=== PATIENT | male | born 1935 | race African-American/Black ===

== ENCOUNTER → 2016-07-27 | Outpatient (CLI) | payer BC ==
--- NOTE | ~2016-07-27 | CT57 ---
[facility]. [facility] A Service of [facility] RADIOLOGY TEXT RESULTS PATIENT: ASHLY MCMULLEN LOCATION: [facility] : 33 UNIT #: [id number] AGE: [address]: Joel Larios MD SEX: M ORDER DR: [id number] [address] [address] [id number] O MR#: [id number] Acc #: [id number] NAME: ASHLY MCMULLEN : 1935 SEX: M STUDY DATE/TIME: 07/27/2016 15:31 UNIT: [facility] ROOM: STUDY DESCRIPTION: CT Chest Wo Cont Attending Physician: Joel Larios M.D. Referring Physician: Joel Larios M.D. Ordering Physician: Bridgette Taipa A.P.R.N. Primary Care Physician: Giovany Wright M.D. MEDICAL IMAGING REPORT This report is preliminary unless electronic signature is present. EXAM CT chest without contrast. DATE 07/27/2016 HISTORY 80-year-old male with dyspnea. Patient states symptoms for 2 years. Emphysema. Patient states history of malignancy, but type of malignancy not designated on the history sheet. Patient states history of radiation therapy in 2004. COMPARISON CT chest without contrast, 12/26/2012. PROCEDURE 5 mm noncontrast axial images through the chest. Sagittal and coronal reformatted images were obtained. This CT exam was performed with one or more of the following radiation dose reduction techniques: automatic exposure control, adjustment of mA and/or kV according to patient size, and iterative reconstruction. FINDINGS Airspace disease is demonstrated posteriorly within the right upper lobe, a new finding since the 2012 examination. Severe emphysematous changes are present. There is a noncalcified nodule within the central right upper lobe measuring 6 mm (series 5 image 26). There is some linear band-like atelectasis or scarring within the left upper lobe which is new. There is some scarring within the superior left STS. [facility] A Service of [facility] RADIOLOGY TEXT RESULTS PATIENT: ASHLY MCMULLEN LOCATION: [facility] : 33 UNIT #: [id number] AGE: [address]: Joel Larios MD SEX: M ORDER DR: lower lobe which is unchanged. Biapical fibrotic changes are present. No pericardial effusion. No pleural effusion. No pneumothorax. Dense coronary artery calcifications. 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 No pathologic adenopathy is seen. Benign calcified lymph nodes are seen within the mediastinum. Imaged thyroid gland appears unremarkable. Gynecomastia changes are present bilaterally. 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 Incompletely imaged left renal cysts, located [id number], measuring 2.7 and 2.8 cm, respectively. Scattered, tiny, ill-defined low-density lesions throughout the liver, nonspecific but favored to represent cysts. Incompletely imaged ectasia of infrarenal abdominal aorta up to 2.7 cm. Kyphotic curvature of the thoracic spine but no acute osseous abnormalities are identified. IMPRESSION 1. Dense posterior right upper lobe airspace disease is new since 2012. Correlate clinically for pneumonia. 2. New band-like atelectasis or scarring in the left upper lobe since 2012. 3. 6 mL noncalcified right upper lobe pulmonary nodule is stable since 12/26/2012 in keeping with a benign finding. Previously described left upper lobe pulmonary nodule not visualized today likely obscured by aforementioned suspected atelectasis. 4. Severe emphysema with chronic biapical scarring. 5. 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 Incompletely imaged ectasia of the infrarenal abdominal aorta. 6. Nonspecific low-density hepatic lesions favored to represent cysts, and incompletely imaged left renal cysts. Dictated by... Isabel Simmons M.D. THIS IS AN ELECTRONICALLY VERIFIED REPORT Isabel Simmons M.D. at 07/31/2016 8:36 AM RAJIV/favian TD: 07/28/2016 10:03 JOB #: [id number] MEDICAL IMAGING REPORT Page 1 of 1
== END | disposition home or self-care (01) ==
LOC: SCT 14:31
DX: R06.00 Dyspnea, unspecified (principal); J98.4 Other disorders of lung; R91.1 Solitary pulmonary nodule; J43.9 Emphysema, unspecified; I71.2 Thoracic aortic aneurysm, without rupture; K76.9 Liver disease, unspecified; N28.1 Cyst of kidney, acquired
CPT/HCPCS: 71250